=== PATIENT | female | born 1975 ===

== ENCOUNTER 2017-08-11 14:29 | Emergency (ER) | payer MEDICAID ==
[2017-08-11 14:30] VITALS: BMI 24.5
[2017-08-11 14:37] VITALS: BP 127/70; PULSE 84; TEMP 98
[2017-08-11 15:27] VITALS: RESP 18; O2SAT 97
--- NOTE | 2017-08-11 15:44 | C.PDOC ---
History Of Present Illness 41-year-old female, presents to the emergency department with complaints of hot flashes and tingling sensation throughout her body with associated chest pressure and SOB lasting 2 minutes. Patient states she has a history of hot flashes due to being menopausal , last menses 6 months ago. Patient states she was sitting in car feeling very hot when episode came on. Additionally she admits she has not really eaten a full meal today. Patient states she was feeling anxious. She has been evaluated by PMD for similar episodes recently had blood work 2 weeks ago and is seeing computational theory scientist for stress test in 2 weeks. She denies nausea/vomiting, fevers, chills, chest pain, or any other associated symptoms. No other complaints at this time. Time Seen by Provider: 08/11/17 15:30 Chief Complaint (Nursing): Shortness Of Breath History Per: Patient History/Exam Limitations: no limitations Current Symptoms Are (Timing): Still Present Past Medical History Reviewed: Historical Data, Nursing Documentation, Vital Signs Vital Signs: Last Vital Signs Temp 98 F 08/11/17 14:32 Pulse 84 08/11/17 14:32 Resp 18 08/11/17 15:24 BP 127/70 08/11/17 14:32 Pulse Ox 97 08/11/17 18:40 - Medical History PMH: Asthma Denies: Chronic Kidney Disease Surgical History: Appendectomy, Tonsillectomy - [facility] APPLICATION OF SPLINT (08/15/13) Family History: States: No Known Family Hx - Social History Hx Alcohol Use: Yes Hx Substance Use: Yes Review Of Systems Constitutional: Positive for: Other (hot flashes). Negative for: Fever Cardiovascular: Positive for: Chest Pain Respiratory: Positive for: Shortness of Breath. Negative for: Pleuritic Pain, Wheezing Gastrointestinal: Negative for: Nausea, Vomiting, Abdominal Pain Genitourinary: Negative for: Dysuria Skin: Negative for: Rash Neurological: Negative for: Headache, Dizziness Physical Exam - Physical Exam Appears: Well, Non-toxic, No Acute Distress Skin: Normal Color, Warm, Dry, No Rash Head: Atraumatic, Normacephalic Eye(s): bilateral: Normal Inspection Nose: Normal Oral Mucosa: Moist Lips: Normal Appearing Neck: Normal ROM Chest: Symmetrical, No Tenderness Cardiovascular: Rhythm Regular, No Murmur Respiratory: Normal Breath Sounds, No Accessory Muscle Use, No Wheezing Gastrointestinal/Abdominal: Soft, No Tenderness Back: Normal Inspection Extremity: Normal ROM, No Tenderness, No Deformity, No Swelling Pulses: Left Radial: Normal Neurological/Psych: Oriented x3, Normal Speech Gait: Steady ED Course And Treatment ECG: Interpreted By Me, Viewed By Me ECG Rhythm: Sinus Rhythm ECG Interpretation: No Acute Changes Rate From EC O2 Sat by Pulse Oximetry: 97 Medical Decision Making Medical Decision Making: Patient with complaint of one episode of hot flash, chest pressure, SOB, and anxiety. EKG obtained during triage and normal sinus. Patient evaluated and in no distress exam unremarkable. My plan is to order labs and CXR. However the patient is stating she feels fine and does not want further testing as she already had blood work and has outpatient appointment. I explained to patient given her complaints it is likely symptoms can be anxiety or menopause related, however need to rule out cardiac etiology. The patient declined any additional tests. This patient is choosing to leave against medical advice. I have personally explained to the pt that choosing to do so may result in permanent bodily harm or . I have discussed at great length that without further evaluation and monitoring there may be unforeseen circumstances and/or deterioration causing permanent bodily harm or as a result of their choice. The pt verbalized these risks back to the physician in laymans terms. The pt is alert, oriented, and shows the mental capacity to make clear decisions regarding the pts health care at this time. The pt continues to wish to leave against medical advice. In light of the pts decision to leave AMA, follow-up has been arranged and the pt is aware of the importance of following up as instructed. The pt has been advised that they should return to the ED immediately if they change their mind at any time, or if their condition begins to change or worsen in any way. Disposition Counseled Patient/Family Regarding: Diagnosis, Need For Followup - Disposition Disposition: AGAINST MEDICAL ADVICE Disposition Time: 15:44 Condition: GOOD Instructions: Anxiety, Adult (DC) Forms: [facility] (Ukrainian) - POA Present On Arrival: None - Clinical Impression Clinical Impression: Anxiety - Scribe Statement The provider has reviewed the documentation as recorded by the Scribe (Rhett Klein) All medical record entries made by the Scribe were at my direction and personally dictated by me. I have reviewed the chart and agree that the record accurately reflects my personal performance of the history, physical exam, medical decision making, and the department course for this patient. I have also personally directed, reviewed, and agree with the discharge instructions and disposition.
--- NOTE | 2017-08-12 11:55 | CARD ---
APPROVED REPORT EKG Measurement Heart [id number] <Conclusion> Sinus rhythm with short MO Nonspecific T wave abnormality Abnormal ECG
== END 2017-08-11 15:44 | disposition left against medical advice (07) ==
LOC: C.ER 14:29
DX: F41.9 Anxiety disorder, unspecified (principal)